=== PATIENT | female | born 1995 | race Caucasian/White ===

== ENCOUNTER → 2016-11-27 | Outpatient (CLI) | payer OTHER ==
[~2016-11-27] MED LIST: IBUP-232 PO; OXYC1TAB63 PO; SENN1TAB PO
[2016-11-27 10:07] LABS: AUTOMATED NEUTROPHIL # 9.5 TH/MM3 (1.8-7.7); BASOPHIL % 0.1 % (0.0-2.0); EOSINOPHIL # 0.3 TH/MM3 (0-0.4); EOSINOPHIL % 2.7 % (0.0-4.0); HEMATOCRIT 35.5 % (35.0-46.0); HEMO FLAGS DIFF FINAL; LYMPH % 14.4 % (9.0-44.0); LYMPHOCYTE # 1.8 TH/MM3 (1.0-4.8); MEAN CELL VOLUME 86.5 FL (80.0-100.0); MEAN CORPUSCULAR HEMOGLOBIN 29.4 PG (27.0-34.0); MEAN CORPUSCULAR HGB CONC 33.9 % (32.0-36.0); MONO % 6.6 % (0.0-8.0); NEUT % 76.2 % (16.0-70.0); PLATELET COUNT 186 TH/MM3 (150-450); RED BLOOD COUNT 4.11 MIL/MM3 (4.00-5.30); RED CELL DISTRIBUTION WIDTH 13.6 % (11.6-17.2); WHITE BLOOD COUNT 12.5 TH/MM3 (4.0-11.0)
[2016-11-27 10:43] LABS: RUBELLA IGG ANTIBODY 10.9 IU/mL (10.0-500.0); RUBELLA STATUS IMMUNE (IMMUNE)
[2016-11-30 15:46] LABS: RAPID PLASMA REAGIN SCREEN NON-REACTIVE (NON-REACTVE)
== END ==
LOC: CLAB 09:18
PROVIDERS: ATTEND Nurse Practitioner Women's Health
DX: Z20.820 Contact with and (suspected) exposure to varicella (principal); Z11.59 Encounter for screening for other viral diseases; Z13.89 Encounter for screening for other disorder; Z13.29 Encounter for screening for other suspected endocrine disorder; Z13.21 Encounter for screening for nutritional disorder; Z33.1 Pregnant state, incidental
CPT/HCPCS: 36415; 84443; 85025; 86592; 86762; 86787; 86850; 86900; 86901; 87086; 87340

== ENCOUNTER 2017-03-24 14:46 | Inpatient (IN) | payer MEDICAID ==
[2017-03-26] VITALS (7 sets, daily range): BP systolic 96–113; BP diastolic 49–67; PULSE 68–88; RESP 16–24; TEMP 97.5–97.9; O2SAT 98–99
[2017-03-26] MEDS ORDERED: LACTATED RINGER'S 1000 ML INJ 1,000 ML IV ONE (09:58)
[2017-03-26 10:11] LABS: BACTERIA, URINE RARE /hpf; BLOOD, URINE NEG (NEG); COMMENT (UR) CULTURE INDICATED; CULTURE IF INDICATED CULTURE INDICATED; GLUCOSE,URINE NEG (NEG); KETONE, URINE NEG (NEG); MUCUS URINE FEW /lpf (OCC); NITRITE,URINE NEG (NEG); SQUAMOUS EPITHELIAL CELL URINE 4 /hpf (0-5); URINE COLOR YELLOW (YELLW/STRAW)
[2017-03-26 10:11] LABS: AUTOMATED NEUTROPHIL # 7.8 TH/MM3 (1.8-7.7); BASOPHIL % 0.3 % (0.0-2.0); EOSINOPHIL # 0.3 TH/MM3 (0-0.4); EOSINOPHIL % 2.3 % (0.0-4.0); HEMATOCRIT 41.1 % (35.0-46.0); HEMO FLAGS DIFF FINAL; LYMPH % 24.6 % (9.0-44.0); LYMPHOCYTE # 2.9 TH/MM3 (1.0-4.8); MEAN CELL VOLUME 87.8 FL (80.0-100.0); MEAN CORPUSCULAR HEMOGLOBIN 28.6 PG (27.0-34.0); MEAN CORPUSCULAR HGB CONC 32.6 % (32.0-36.0); MONO % 7.2 % (0.0-8.0); NEUT % 65.6 % (16.0-70.0); PLATELET COUNT 179 TH/MM3 (150-450); RED BLOOD COUNT 4.68 MIL/MM3 (4.00-5.30); RED CELL DISTRIBUTION WIDTH 13.7 % (11.6-17.2); WHITE BLOOD COUNT 11.9 TH/MM3 (4.0-11.0)
[2017-03-26] MEDS: LACTATED RINGER'S 1000 ML INJ 1,000 ML IV SCH ×2 (10:49→17:08)
[2017-03-26] MEDS ORDERED: ceFAZolin 2 GM PREMIX 50 ML IV SCH (11:00)
--- NOTE | 2017-03-26 11:19 | HHI.HP ---
HPI Chief Complaint Repeat C- section Date Seen: March 26, 2017 Time Seen: 11:00 (Cipriano Brar MD R2) Travel History International Travel<30 Days: No Contact w/Intl Traveler<30Days: No Known Affected Area: No (Cipriano Brar MD) History of Present Illness HPI Patient is a 22-year-old 102 at 39/3 weeks gestation with DESTINI of 03/30/17 based on second trimester ultrasound performed at 18 weeks presenting for a repeat . Initial was performed for twin delivery. Surgery was done in [place] with no available records. Patient is therefore not a candidate for . She endorses movement, denies leakage of fluid , vaginal bleeding, abdominal pain, regular contractions. Patient is Macedonian- speaking only. care initially with [facility], and then transferred to [facility]. Care complicated by 1. Late care, first visit in November with care for women at 20/1 weeks gestation 2. Insufficient care, No care in December or January, care transferred to a [facility] at 34 weeks 3. Previous c/s, unknown scar 4. young multigravida 5. GBS + 6. Declined tubal ligation 7. Likely conceived on Depo-Provera : 2 (Cipriano Brar MD) History Past Medical History Medical History: Denies Significant Hx (Cipriano Brar MD) Obstetric History Obstetric History Prior due to twin gestation with twin a in breech position No complications with current (Cipriano Brar MD R2) Past Surgical History Narrative Surgical (Cipriano Brar MD) Family History Family History: Negative (Cipriano Brar MD) Social History Alcohol Use: No Tobacco Use: No Substance Abuse: No (Cipriano Brar MD) Allergies-Medications (Allergen,Severity, Reaction): Coded Allergies: No Known Allergies (Unverified , 11/11/16) Home Meds No Active Prescriptions or Reported Meds Review of Systems General / Constitutional: No: Fever, Chills Eyes: No: Visual changes HENT: No: Headaches Cardiovascular: No: Chest Pain or Discomfort Respiratory: No: Cough Gastrointestinal: No: Nausea, Vomiting, Abdominal Pain Genitourinary: No: Dysuria Skin: No Rash (Cipriano Brar MD) Physical Exam Narrative GENERAL: Well-nourished, well-developed patient. SKIN: Warm and dry. HEAD: Normocephalic and atraumatic. EYES: No scleral icterus. No injection or drainage. ENT: No nasal drainage noted. Mucous membranes pink. Airway patent. NECK: Supple, trachea midline. No JVD. CARDIOVASCULAR: Regular rate and rhythm without murmurs, gallops, or rubs. RESPIRATORY: Breath sounds equal bilaterally. No accessory muscle use. ABDOMEN/GI: Abdomen soft, non-tender, bowel sounds present, no rebound, no guarding Gravid to 39 weeks size GENITOURINARY: External Genitalia: intact and normal in appearance Membranes: Intact Uterine Contractions: Occasional FHT's: Category: 1 Baseline: 150 Reactive: + Variability: Moderate Decels: Absent EXTREMITIES: No cyanosis or edema. BACK: Nontender without obvious deformity. No CVA tenderness. NEUROLOGICAL: Awake and alert. Motor and sensory grossly within normal limits. Five out of 5 muscle strength in all muscle groups. Normal speech. (Cipriano Brar MD R2) Data Data Orders Admit To Inpatient (03/26/17 ) Code Status (03/26/17 09:58) Vital Signs (Adult) .ON ADMISSION (03/26/17 09:58) Activity Oob Ad Renee (03/26/17 09:58) Heart (03/26/17 09:58) Urinary Catheter Management JERAMY.Q8H (03/26/17 09:58) ^ Preps (03/26/17 09:58) Scd / Randy / Foot Pump JERAMY.QSHIFT (03/26/17 09:58) ^ Ultrasound For Locatio (03/26/17 09:58) Diet Npo (03/26/17 Breakfast) Lactated Ringer's 1000 Ml Inj (Lr 1000 M (03/26/17 09:58) Lactated Ringer's 1000 Ml Inj (Lr 1000 M (03/26/17 10:28) Cefazolin 2 Gm Premix (Ancef 2 Gm Premix (03/26/17 11:00) Citric Acid-Sodium Citrate Liq (Bicitra (03/26/17 11:30) Type And Screen (03/26/17 09:58) Complete Blood Count With Diff (03/26/17 09:58) Urinalysis - C+S If Indicated (03/26/17 09:58) Inpatient Certification (03/26/17 ) Specimen To Be Collected PRN (03/26/17 09:58) Urine Culture (03/26/17 09:00) Labs Laboratory Tests Test 03/26/17 03/26/17 09:00 09:20 Urine Color YELLOW Urine Turbidity CLEAR Urine pH 6.0 Urine Specific [place] 1.013 Urine Protein NEG Urine Glucose (UA) NEG Urine Ketones NEG Urine Occult Blood NEG Urine Nitrite NEG Urine Bilirubin NEG Urine Urobilinogen LESS THAN 2.0 Urine Leukocyte Esterase LARGE Urine RBC 1 Urine WBC 12 Urine Squamous Epithelial 4 Cells Urine Bacteria RARE Urine Mucus FEW Microscopic Urinalysis Comment CULTURE INDICATED White Blood Count 11.9 Red Blood Count 4.68 Hemoglobin 13.4 Hematocrit 41.1 Mean Corpuscular Volume 87.8 Mean Corpuscular Hemoglobin 28.6 Mean Corpuscular Hemoglobin 32.6 Concent Red Cell Distribution Width 13.7 Platelet Count 179 Mean Platelet Volume 10.7 Neutrophils (%) (Auto) 65.6 Lymphocytes (%) (Auto) 24.6 Monocytes (%) (Auto) 7.2 Eosinophils (%) (Auto) 2.3 Basophils (%) (Auto) 0.3 Neutrophils # (Auto) 7.8 Lymphocytes # (Auto) 2.9 Monocytes # (Auto) 0.9 Eosinophils # (Auto) 0.3 Basophils # (Auto) 0.0 CBC Comment DIFF FINAL Differential Comment Blood Type A POSITIVE Antibody Screen NEGATIVE Date/Time Procedure Status Source Growth 03/26/17 09:00 Urine Culture Received Urine Clean Catch Pending (Cipriano Brar MD R2) Assessment/Plan Assessment and Plan Patient is a 22-year-old with insuffecient care, at 39/3 weeks gestation, DESTINI of 03/30/17 based on second trimester ultrasound performed at 18 weeks presenting for a repeat . Patient counseled at a prior appointment, all risks of were discussed at this time. IUP Category 1 tracing, reassuring We'll proceed with scheduled Patient declines a tubal ligation wdw Dr. Archer (Cipriano Brar MD R2) Attending Attestation Pt seen and examined. Reviewed record in depth, placenta anterior, non -previa. Pt aware of all risks of the procedure, attempted to discuss but she declined. Declining tubal ligation. Agree with Dr. Dominique's note above. (Meena Archer MD) Cipriano Brar MD R2 March 26, 2017 11:19 Meena Archer MD March 26, 2017 12:50
[2017-03-26] MEDS ORDERED: CITRIC ACID-SODIUM CITRATE LIQ 30 ML UDC PO SCH (11:30)
[2017-03-26] MEDS ORDERED: MORPHINE SULFATE PF 5 MG/10 ML VIAL ONE (13:42)
[2017-03-26] MEDS ORDERED: OXYTOCIN 10 UNIT/ML AMP ONE (13:43)
[2017-03-26] MEDS ORDERED: ONDANSETRON HCL 4 MG/2 ML VIAL ONE (13:43)
[2017-03-26] MEDS ORDERED: EPIDURAL-DIPHENHYDRAMINE HCL 50 MG/ML VIAL IV PUSH PRN (16:00)
[2017-03-26] MEDS ORDERED: EPIDURAL-NALOXONE HCL 0.4 MG/ML AMP IV PRN (16:00)
[2017-03-26] MEDS ORDERED: EPIDURAL-NO SYSTEMIC NARCOTICS PRN (16:00)
[2017-03-26] MEDS ORDERED: EPIDURAL-DIPHENHYDRAMINE HCL 50 MG CAP PO PRN (16:00)
[2017-03-26] MEDS ORDERED: EPIDURAL-DO NOT ADMINISTER ANTICOAGULANTS PRN (16:00)
[2017-03-26] MEDS ORDERED: OXYTOCIN 30 UNITS-500ML PREMIX 500 ML IV ONE (16:45)
[2017-03-26] MEDS ORDERED: ACETAMINOPHEN 325 MG TAB PO PRN (16:45)
[2017-03-26] MEDS ORDERED: oxyCODONE/ACETAMINOPHEN 5 MG/325 MG TAB PO PRN (16:45)
[2017-03-26] MEDS ORDERED: SODIUM CHLORIDE 0.9% FLUSH 10 ML FLUSH IV FLUSH PRN (16:45)
[2017-03-26] MEDS ORDERED: ONDANSETRON HCL 4 MG/2 ML VIAL IV PUSH PRN (16:45)
[2017-03-26] MEDS ORDERED: ZOLPIDEM TARTRATE 5 MG TAB PO PRN (16:45)
[2017-03-26] MEDS ORDERED: DOCUSATE SODIUM 50 MG/SENNA 8.6 MG TAB PO PRN (16:45)
[2017-03-26] MEDS ORDERED: SIMETHICONE 80 MG CHEWABLE TAB PO PRN (16:45)
--- NOTE | 2017-03-26 16:52 | PD.OP ---
Operative Report Date of Surgery: March 26, 2017 Preoperative Diagnosis: (1) Insufficient care in third trimester (2) Young multigravida in third trimester (3) Previous delivery affecting , antepartum Postoperative Diagnosis: (1) Insufficient care in third trimester (2) Young multigravida in third trimester (3) Previous delivery affecting , antepartum Procedure: Repeat delivery Anesthesia: Spinal Surgeon: Meena Archer Proposal Writer(s): Ekta Lind [employer] LANG[employer]AGE TUTOR Resident Surgeon: Andrey Carreon MD, PGY1 Operation and Findings: This is a 22y/o at 39w3d with h/o TIUP delivery, due to breech presentation of Twin A. Her c/s was performed in [place] with an unknown scar but a vertical skin incision. Findings: Delivery of a viable Male . 8/9, Weight 3670g Normal, intact placenta with 3 vessel cord Normal uterus Normal tubes and ovaries bilaterally After informed consent was obtained the patient was taken to the operating room where her spinal anesthesia was found to be adequate. A smith catheter was placed and she was then prepared and draped in the normal sterile fashion in the dorsal supine position with a leftward tilt. A midline vertical skin incision was noted from her previous c/s. The decision was made to proceed with a Pfannenstiel skin incision. A Pfannenstiel/midline skin incision was then made with the scalpel and carried through to the underlying layer of fascia. The fascia was incised in the midline and extended laterally with the Acosta scissors. The incision was then grasped with the Sully clamps, elevated and the underlying rectus muscles dissected off bluntly/sharply with the Acosta scissors. Attention was then turned to the inferior aspect of this incision which, in a similar fashion, was grasped, tented up with the Sully clamps, and the rectus muscles dissected off bluntly/sharply with the Acosta scissors. The rectus muscles were then in the midline, and the peritoneum identified, tented up, and entered bluntly using manual dissection. The peritoneal incision was then extended superiorly and inferiorly with good visualization of the bladder. The bladder blade was then inserted and the lower uterine segment was incised in a transverse fashion with the scalpel. The uterine incision was then extended laterally digitally. The bladder blade was removed then the infant's head was not completely flex. A vacuum assisted delivery was performed and the head was delivered atraumatically. The cord clamped and cut after 45 seconds per hospital protocol and the was handed off the field to the awaiting baby nurse. The placenta was then removed, the uterus exteriorized, and cleared of all clots and debris. The uterine incision was repaired with 0 Vicryl in a running, locked fashion. A second layer of the same suture was used in an imbricating fashion to obtain excellent hemostasis. The abdominal cavity was cleaned with a moist lap and the uterus was replaced into the abdomen. The gutters were cleared of all clots and debris the hysterotomy site was noted to be hemostatic. The peritoneum was closed with 2-0 Vicryl in a running fashion. The fascia was then reapproximated with 0 Vicryl in a running fashion. The subcutaneous tissue was closed with 3-0 chromic the skin was closed with 4-0 Monocryl in a subcuticular fashion noting excellent hemostasis. Dermabond was placed along the length of the incision. The patient tolerated the procedure well. Sponge, lap and needle counts were correct times two. The patient was taken to the recovery room in stable condition. Meena Archer MD March 26, 2017 16:52
[2017-03-26] MEDS ORDERED: OXYTOCIN 30 UNITS-500ML PREMIX 500 ML ONE (17:29)
[2017-03-26] MEDS: IBUPROFEN 600 MG TAB PO PRN (19:53)
[2017-03-26] MEDS ORDERED: SODIUM CHLORIDE 0.9% FLUSH 10 ML FLUSH IV FLUSH SCH (21:00)
[2017-03-26] MEDS ORDERED: LACTATED RINGER'S 1000 ML INJ 1,000 ML IV SCH (21:33)
[2017-03-27 00:30] VITALS: BP 103/62; PULSE 67; RESP 15; TEMP 97.4
[2017-03-27] MEDS ORDERED: OXYTOCIN 30 UNITS-500ML PREMIX 500 ML IV PRN (02:45)
[2017-03-27] MEDS: IBUPROFEN 600 MG TAB PO PRN ×3 (07:08→21:14)
[2017-03-27] MEDS: oxyCODONE/ACETAMINOPHEN 5 MG/325 MG TAB PO PRN ×3 (07:08→21:14)
[2017-03-27 07:12] LABS: AUTOMATED NEUTROPHIL # 10.2 TH/MM3 (1.8-7.7); BASOPHIL # 0.1 TH/MM3 (0-0.2); BASOPHIL % 0.4 % (0.0-2.0); EOSINOPHIL # 0.2 TH/MM3 (0-0.4); EOSINOPHIL % 1.4 % (0.0-4.0); HEMATOCRIT 38.9 % (35.0-46.0); HEMO FLAGS DIFF FINAL; LYMPH % 11.8 % (9.0-44.0); LYMPHOCYTE # 1.5 TH/MM3 (1.0-4.8); MEAN CELL VOLUME 86.9 FL (80.0-100.0); MEAN CORPUSCULAR HEMOGLOBIN 29.2 PG (27.0-34.0); MEAN CORPUSCULAR HGB CONC 33.6 % (32.0-36.0); NEUT % 80.4 % (16.0-70.0); PLATELET COUNT 146 TH/MM3 (150-450); RED BLOOD COUNT 4.47 MIL/MM3 (4.00-5.30); RED CELL DISTRIBUTION WIDTH 14.2 % (11.6-17.2); WHITE BLOOD COUNT 12.7 TH/MM3 (4.0-11.0)
[2017-03-27 08:30] VITALS: BP 104/64; PULSE 74; RESP 18; TEMP 98.2
--- NOTE | 2017-03-27 09:22 | HHI.OB ---
Subjective Remarks Professional medical research tech used. 22 year old POD 1 after . Complicated by poor care. OB provider is Azul Dominguez. She is formula feeding. She desires Depo Provera for control. She is ambulating. Pain is well controlled. No complaints about incision. No bowel movement yet. Not ambulating much yet. (Andrey Rizvi MD R2) Objective Vitals/I&O Vital Signs Date Time Temp Pulse Resp B/P Pulse Ox O2 Delivery O2 Flow Rate FiO2 03/27/17 08:30 98.2 74 18 104/64 03/27/17 00:30 97.4 03/27/17 00:30 67 15 103/62 03/26/17 20:00 97.9 03/26/17 20:00 77 16 96/53 03/26/17 19:45 96/53 03/26/17 19:45 97.9 77 16 03/26/17 18:27 97.7 70 18 113/67 03/26/17 17:15 79 18 102/51 99 03/26/17 17:00 24 03/26/17 17:00 68 108/53 03/26/17 17:00 98 03/26/17 16:45 99 03/26/17 16:45 78 18 03/26/17 16:45 97/49 03/26/17 16:30 88 16 109/52 99 03/26/17 16:30 97.5 (Andrey Rizvi MD R2) Result Diagram: 03/27/17 0653 Objective Remarks GENERAL: Well-nourished, well-developed patient. CARDIOVASCULAR: Regular rate and rhythm without murmurs, gallops, or rubs. RESPIRATORY: Breath sounds equal bilaterally. No accessory muscle use. ABDOMEN/GI: Abdomen soft, non-tender, bowel sounds present. Incision: Clean, dry and intact. Fundus: Firm, non-tender at umbilicus. GENITOURINARY: Light to moderate bleeding. EXTREMITIES: No cyanosis or edema, non-tender, without signs of DVT. Medications and IVs Current Medications Medications (Trade) Dose Ordered Sig/Wu Route Start Time Stop Time Status Last Admin Lactated Ringer's 1,000 ml @ 150 mls/hr Q6H40M IV 03/26/17 10:28 03/26/17 10:49 (Lr 1000 ml Inj) 1,000 ml @ 100 mls/hr Q10H IV 03/26/17 21:33 03/27/17 17:32 (NS Flush) 2 ml BID IV FLUSH 03/26/17 21:00 (NS Flush) 2 ml UNSCH PRN IV FLUSH 03/26/17 16:45 (Mylicon Chew) 80 mg QID PRN PO 03/26/17 16:45 (Tylenol) 650 mg Q6H PRN PO 03/26/17 16:45 (Motrin) 600 mg Q6H PRN PO 03/26/17 16:45 03/27/17 07:08 (Percocet 5-325 Mg) 1 tab Q4H PRN PO 03/26/17 16:45 (Percocet 5-325 Mg) 2 tab Q4H PRN PO 03/26/17 16:45 03/27/17 07:08 (Rossy-Colace) 2 tab Q12H PRN PO 03/26/17 16:45 (Ambien) 5 mg HS PRN PO 03/26/17 16:45 (M-M-R Ii Inj) 0.5 ml ONCE ONCE SQ 03/27/17 16:00 03/27/17 16:01 (Boostrix Inj) 0.5 ml ONCE ONCE IM 03/27/17 16:00 03/27/17 16:01 (Zofran Inj) 4 mg Q6H PRN IV PUSH 03/26/17 16:45 03/27/17 00:43 Miscellaneous Information NO SYSTEMIC NARCOTICS TO BE GIVEN FO... UNSCH PRN .XX 03/26/17 16:00 03/27/17 15:59 (Narcan Inj) 0.4 mg UNSCH PRN IV 03/26/17 16:00 03/27/17 15:59 (Benadryl Inj) 25 mg Q6H PRN IV PUSH 03/26/17 16:00 03/27/17 15:59 (Benadryl) 50 mg Q6H PRN PO 03/26/17 16:00 03/27/17 15:59 Miscellaneous Information ALL NURSING DEPARTMENTS UNSCH PRN .XX 03/26/17 16:00 03/27/17 15:59 (Andrey Rizvi MD R2) Assessment/Plan Assessment and Plan 22-year-old POD1 after . - Motrin, Percocet for pain control - Encourage ambulation - Encourage exclusive - Plans on Depo-Provera for control - Will follow with Azul Dominguez after discharge - Plan for discharge in the next [address] Archer (Andrey Rizvi MD R2) Attending Attestation Pt seen and examined. Agree with above. (Meena Archer MD) Andrey Rizvi MD R2 March 27, 2017 09:22 Meena Archer MD March 28, 2017 12:45
[2017-03-27 16:00] VITALS: BP 102/68; PULSE 77; RESP 18; TEMP 98.8
[2017-03-27] MEDS ORDERED: MEASLES, MUMPS, RUBELLA VACCINE 0.5 ML VIAL SQ ONE (16:00)
[2017-03-27] MEDS ORDERED: DIPHTH/TETANUS/ACEL PERTUSSIS (BOOSTER) 0.5 ML VIAL/PFS IM ONE (16:00)
[2017-03-27 21:20] VITALS: BP 122/69; PULSE 96; RESP 16; TEMP 98
[2017-03-28] MEDS: IBUPROFEN 600 MG TAB PO PRN ×2 (04:56→10:20)
[2017-03-28] MEDS: oxyCODONE/ACETAMINOPHEN 5 MG/325 MG TAB PO PRN ×2 (04:56→10:20)
[2017-03-28] MEDS ORDERED: IBUP-232 PO (07:06)
[2017-03-28] MEDS ORDERED: OXYC1TAB63 PO (07:06)
[2017-03-28] MEDS ORDERED: SENN1TAB PO (07:06)
--- NOTE | 2017-03-28 07:07 | HHI.DCPOC ---
Discharge Care Plan Diagnosis: (1) Delivered by section Goals to Promote Your Health * To prevent worsening of your condition and complications * To maintain your health at the optimal level Directions to Meet Your Goals Take your medications as prescribed Follow your dietary instruction Follow activity as directed Keep your appointments as scheduled Take your immunizations and boosters as scheduled If your symptoms worsen call your PCP, if no PCP go to Urgent Care Center or Emergency Room Smoking is Dangerous to Your Health. Avoid second hand smoke Call the 24-hour hour crisis hotline for domestic abuse at Andrey Rizvi MD R2 March 28, 2017 07:07 Bruce Toribio MD March 28, 2017 09:45
--- NOTE | 2017-03-28 07:14 | HHI.OB ---
Subjective Remarks Professional civil preparedness coordinator used. 22 year old POD 2 after . Complicated by poor care. OB provider is Azul Dominguez. She is formula feeding. Encouraged . She desires Depo Provera for control. She is ambulating. Pain is well controlled. No complaints about incision. She is ambulating well. (Andrey Rizvi MD R2) Remarks Patient seen and evaluated with resident under direct supervision, agree with assessment and plan. (Bruce Toribio MD) Objective Vitals/I&O Vital Signs Date Time Temp Pulse Resp B/P Pulse Ox O2 Delivery O2 Flow Rate FiO2 03/27/17 21:20 98.0 96 16 122/69 03/27/17 16:00 102/68 03/27/17 16:00 98.8 77 18 03/27/17 08:30 98.2 74 18 104/64 (Andrey Rizvi MD R2) Result Diagram: 03/27/17 0653 Objective Remarks GENERAL: Well-nourished, well-developed patient. CARDIOVASCULAR: Regular rate and rhythm without murmurs, gallops, or rubs. RESPIRATORY: Breath sounds equal bilaterally. No accessory muscle use. ABDOMEN/GI: Abdomen soft, non-tender, bowel sounds present. Incision: Clean, dry and intact. Fundus: Firm, non-tender at umbilicus. GENITOURINARY: Light to moderate bleeding. EXTREMITIES: No cyanosis or edema, non-tender, without signs of DVT. Medications and IVs Current Medications Medications (Trade) Dose Ordered Sig/Wu Route Start Time Stop Time Status Last Admin (Lr 1000 ml Inj) 1,000 ml @ 150 mls/hr Q6H40M IV 03/26/17 10:28 03/26/17 10:49 (NS Flush) 2 ml BID IV FLUSH 03/26/17 21:00 (NS Flush) 2 ml UNSCH PRN IV FLUSH 03/26/17 16:45 (Mylicon Chew) 80 mg QID PRN PO 03/26/17 16:45 (Tylenol) 650 mg Q6H PRN PO 03/26/17 16:45 (Motrin) 600 mg Q6H PRN PO 03/26/17 16:45 03/28/17 04:56 (Percocet 5-325 Mg) 1 tab Q4H PRN PO 03/26/17 16:45 (Percocet 5-325 Mg) 2 tab Q4H PRN PO 03/26/17 16:45 03/28/17 04:56 (Rossy-Colace) 2 tab Q12H PRN PO 03/26/17 16:45 (Ambien) 5 mg HS PRN PO 03/26/17 16:45 (Zofran Inj) 4 mg Q6H PRN IV PUSH 03/26/17 16:45 03/27/17 00:43 (Andrey Rizvi MD R2) Assessment/Plan Assessment and Plan 22-year-old POD2 after . - Motrin, Percocet for pain control - Encourage ambulation - Encourage exclusive - Plans on Depo-Provera for control - Will follow with Azul Dominguez after discharge - Plan for discharge today dw Dr. Toribio (Andrey Rizvi MD R2) Andrey Rizvi MD R2 March 28, 2017 07:14 Bruce Toribio MD March 28, 2017 09:45
[2017-03-28 08:00] VITALS: BP 118/67; PULSE 82; RESP 18; TEMP 97.9
== END 2017-03-28 14:34 | disposition home or self-care (01) | DRG 766 ==
LOC: H2EB 03-26 08:40 → H1EA 03-26 17:40
PROVIDERS: ADMIT Obstetrics & Gynecology; ATTEND Obstetrics & Gynecology
PROC: 10D00Z0 Extraction of Products of Conception, High, Open Approach (ICD-10-PCS; principal; 2017-03-26)
DX: O34.219 Maternal care for unspecified type scar from previous cesarean delivery (principal); O99.824 Streptococcus B carrier state complicating childbirth; Z3A.39 39 weeks gestation of pregnancy; Z37.0 Single live birth
CPT/HCPCS: 59025; 81001; 85025; 86850; 86900; 86901; 87086; 90715; J0690; J2274; J2405; J2590; J7120